=== PATIENT | female | born 1955 | race African-American/Black ===

== ENCOUNTER 2017-08-02 07:34 | Day surgery (SDC) | payer MEDICARE, MEDICAID ==
[~2017-08-02] VITALS: Ht 162.6 cm; Wt 98.0 kg
[~2017-08-02 07:34] MED LIST: FERRIC SUBSULFATE SOLN 8GM TOP SCH; POTASSIUM IODIDE/IODINE 20ML TOP SCH
[2017-08-02] MEDS ORDERED: LACTATED RINGERS 1,000 ML IV SCH (08:15)
[2017-08-02 08:48] LABS: BASOPHILS % 0.8 % (0.0-2.0); EOSINOPHILS % 2.5 % (0.0-5.0); HEMATOCRIT. 35.1 % (36.0-48.0); HEMOGLOBIN. 11.7 g/dL (12.0-16.0); LYMPHOCYTES % 33.1 % (20.0-50.0); MEAN CORPUSCULAR HEMOGLOBIN 29.1 pg (28.0-32.0); MEAN CORPUSCULAR VOLUME 87.5 fL (81.0-99.0); MEAN PLATELET VOLUME 9.3 fl (7.4-10.4); NEUTROPHILS % 55.6 % (40.0-76.0); PLATELET 244 x1000/uL (130-400); RED BLOOD CELL COUNT 4.01 mill/uL (4.2-5.4); RED CELL DISTRIBUTION WIDTH 15.9 % (11.6-14.6)
[2017-08-02 08:49] LABS: CLARITY URINE CLEAR (CLEAR); COLOR URINE YELLOW (YELLOW); KETONES URINE NEGATIVE (NEGATIVE); LEUKOCYTE ESTERASE URINE NEGATIVE (NEGATIVE); NITRITE URINE NEGATIVE (NEGATIVE); OCCULT BLOOD URINE NEGATIVE (NEGATIVE); PROTEIN URINE NEGATIVE (NEGATIVE); SPECIFIC GRAVITY URINE 1.023 (1.005-1.030); UROBILINOGEN URINE 0.2 E.U./dL (0.2-1.0)
[2017-08-02 08:53] LABS: UCG SCREEN NEGATIVE
[2017-08-02 08:59] LABS: INR 0.9; PARTIAL THROMBOPLASTIN TIME 26.6 sec (23.4-31.0); PROTHROMBIN TIME 9.8 sec (9.4-11.6)
[2017-08-02 09:03] LABS: CHLORIDE 107 mEq/L (98-107)
[2017-08-02] MEDS ORDERED: ENAL10TA PO (09:15)
[2017-08-02] MEDS ORDERED: NIFE20CA PO (09:15)
[2017-08-02] MEDS ORDERED: PANT40TA4 PO (09:15)
[2017-08-02] MEDS ORDERED: CETI10TA6 PO (09:15)
[2017-08-02] MEDS ORDERED: HYDR25TA PO (09:15)
[2017-08-02] MEDS ORDERED: ASPI-1159 PO (09:15)
[2017-08-02] MEDS ORDERED: GLYCOPYRROLATE 0.2 MG/ML 2ML VIAL ONE (09:29)
[2017-08-02] MEDS ORDERED: ROCURONIUM BROMIDE 10MG/ML VIAL 5ML IV ONE (09:34)
[2017-08-02] MEDS ORDERED: PROPOFOL 200MG/20ML VIAL IV ONE (09:34)
[2017-08-02] MEDS ORDERED: CEFAZOLIN SODIUM 1000MG/VIAL ONE (09:35)
[2017-08-02] MEDS ORDERED: METOCLOPRAMIDE HCL 10MG/2ML VIAL ONE (09:35)
[2017-08-02] MEDS ORDERED: SUCCINYLCHOLINE CHLORIDE 200MG/10ML VIAL IV ONE (09:35)
[2017-08-02] MEDS ORDERED: LIDOCAINE HCL/PF 1% 10 MG/ML 5ML VIAL ONE (09:35)
[2017-08-02] MEDS ORDERED: ONDANSETRON HCL 4MG/2ML VIAL ONE (09:35)
[2017-08-02] MEDS ORDERED: MIDAZOLAM HCL 2 MG/2 ML VIAL ONE (09:36)
[2017-08-02] MEDS ORDERED: FENTANYL CITRATE/PF 50MCG/ML 2ML VIAL ONE (09:36)
[2017-08-02] MEDS ORDERED: BUPIVACAINE HCL 0.5% (5MG/ML) 50ML ONE (09:38)
[2017-08-02] MEDS ORDERED: ALBUTEROL 90MCG/PUFF 17GM INHALER INH ONE (10:22)
[2017-08-02] MEDS ORDERED: VERAPAMIL HCL 2.5 MG/1 ML 2ML VIAL IV ONE (10:32)
[2017-08-02] MEDS ORDERED: ALBUTEROL (0.083%) 2.5MG/3ML NEB ONE (10:48)
[2017-08-02] MEDS ORDERED: ONDANSETRON HCL 4MG/2ML VIAL IV PRN (11:00)
[2017-08-02] MEDS ORDERED: MEPERIDINE HCL/PF 25MG/ML CPJ IV PRN (11:00)
[2017-08-02] MEDS ORDERED: SODIUM CHLORIDE 0.9% 1,000 ML IV ONE (11:00)
[2017-08-02] MEDS ORDERED: ALBUTEROL (0.5%) 2.5MG/0.5ML NEB HHN ONE (11:00)
== END 2017-08-02 12:55 | disposition home or self-care (01) ==
LOC: OR 07:34
PROVIDERS: ATTEND Obstetrics & Gynecology Obstetrics
DX: I47.1 Supraventricular tachycardia (principal); Z53.8 Procedure and treatment not carried out for other reasons; I10 Essential (primary) hypertension; Z79.01 Long term (current) use of anticoagulants
CPT/HCPCS: 36415; 71045; 80048; 81003; 81025; 85025; 85610; 85730; 93005; 94640; J0330; J0690; J2250; J2405; J2765; J3010; J3490; J7120; J7611; J2704

== ENCOUNTER 2017-08-09 06:50 | Day surgery (SDC) | payer MEDICARE, MEDICAID ==
[~2017-08-09] VITALS: Ht 162.6 cm; Wt 93.4 kg
[~2017-08-09 06:50] MED LIST changes: +ASPI-1159 PO; +CETI10TA6 PO; +ENAL10TA PO; -FERRIC SUBSULFATE SOLN 8GM TOP SCH; +HYDR25TA PO; +LACTATED RINGERS 1,000 ML IV SCH; +NIFE20CA PO; +PANT40TA4 PO; -POTASSIUM IODIDE/IODINE 20ML TOP SCH
[2017-08-09] MEDS ORDERED: PROPOFOL 200MG/20ML VIAL IV ONE (07:16)
[2017-08-09] MEDS ORDERED: FENTANYL CITRATE/PF 50MCG/ML 2ML VIAL ONE (07:16)
[2017-08-09] MEDS ORDERED: MIDAZOLAM HCL 2 MG/2 ML VIAL ONE (07:17)
[2017-08-09] MEDS ORDERED: FERRIC SUBSULFATE SOLN 8GM TOP ONE (08:00)
[2017-08-09] MEDS ORDERED: POTASSIUM IODIDE/IODINE 20ML TOP ONE (08:00)
[2017-08-09] MEDS ORDERED: VASOPRESSIN 20 UNIT/ML 1ML ONE (09:11)
[2017-08-09] MEDS ORDERED: METRONIDAZOLE 0.75% VAG GEL 70GM VG ONE (09:18)
[2017-08-09] MEDS ORDERED: ONDANSETRON HCL 4MG/2ML VIAL ONE (10:08)
[2017-08-09] MEDS ORDERED: KETOROLAC 30MG/ML VIAL ONE (10:08)
[2017-08-09] MEDS ORDERED: MEPERIDINE HCL/PF 25MG/ML CPJ IV PRN (10:15)
[2017-08-09] MEDS ORDERED: ONDANSETRON HCL 4MG/2ML VIAL IV NR (10:15)
[2017-08-09] MEDS ORDERED: GLYCOPYRROLATE 0.2 MG/ML 2ML VIAL ONE (10:21)
[2017-08-09] MEDS: FENTANYL CITRATE/PF 50MCG/ML 2ML VIAL IV PRN ×4 (10:56→11:30)
[2017-08-09 11:30] VITALS: BP 118/70
== END 2017-08-09 12:55 | disposition home or self-care (01) ==
LOC: OR 06:50
PROVIDERS: ATTEND Obstetrics & Gynecology Obstetrics
DX: N72 Inflammatory disease of cervix uteri (principal); N88.8 Other specified noninflammatory disorders of cervix uteri; K21.9 Gastro-esophageal reflux disease without esophagitis; I10 Essential (primary) hypertension; F41.8 Other specified anxiety disorders; E66.01 Morbid (severe) obesity due to excess calories; Z79.82 Long term (current) use of aspirin; Z79.899 Other long term (current) drug therapy; Z79.01 Long term (current) use of anticoagulants
CPT/HCPCS: 57522; 88305; 88307; J1885; J2250; J2405; J3010; J3490; J7120; J2704